=== PATIENT | female | born 1995 | race Caucasian/White ===

== ENCOUNTER 2017-04-18 21:15 | Observation (INO) | payer MEDICAID ==
[~2017-04-18 21:15] MED LIST: ADDERALL 20 MG20 M1 PO; AMOXICILLIN; AUGMENTIN; BACTRIM DS TABL1 TAB PO; BIRTH CONTROL; CHILDREN'S100 MG PO; COMPAZINE10 MG PO; DOXEPIN HCL10 MG PO; EFFEXOR75 MG PO; FOLIC ACID; FOLIC ACID0.8 M1 PO; GABAPENTIN; LEXAPRO20 MG; METHYLPHENIDATE; NAPROSYN250 MG; NORCO 5-325 TA1 EACH PO; PEN-VEE K500 MG PO; PRENATAL VITAM1 EAC8 PO; PREVACID; PREVPAC PATIEN1 EACH PO; PROMETHAZINE HC25 M3 PO; PROTONIX20 M2 PO; ROZEREM8 MG; TRAMADOL HCL50 MG PO; TRAZODONE50 MG PO; VITAMIN C; ZOFRAN; ZOFRAN ODT4 MG PO; ZOFRAN4 M2 PO; ZOFRAN8 M1 PO
[2017-04-18 21:56] LABS: BASO % 0.1 % (0-2); HCT-HEMATOCRIT 49.1 % (34.0-49.0); HGB-HEMOGLOBIN 16.9 gm/dl (12.0-15.5); IMMATURE GRANULOCYTES ABSOLUTE 0.04 tho/cmm (0-0.03); IMMATURE GRANULOCYTES PERCENT 0.2 % (0-0.3); LYMPH % 23.2 % (20-45); LYMPH ABSOLUTE COUNT 3.9 tho/cmm (0.8-4.5); MCH (MEAN CORPUSCULAR HGB) 29.4 pg (28.0-32.0); MCHC MEAN CORPUSCULAR HGB CONC 34.4 % (32.0-36.0); MCV (MEAN CELL VOLUME) 85.4 fl (82.0-96.0); MEAN PLATELET VOLUME 10.7 cmc (9.4-12.4); MONO % 6.9 % (0-12); MONOCYTE ABSOLUTE COUNT 1.2 tho/cmm (0.0-1.2); NEUTROPHIL ABSOLUTE COUNT 11.7 tho/cmm (1.6-8.0); NEUTROPHIL-AUTOMATED 11.7 tho/cmm (1.6-8.0); NEUTROPHILS % 69.6 % (40-80); PLATELET COUNT 413 tho/cmm (150-450); RED BLOOD COUNT 5.75 mil/cmm (4.00-5.20); RED CELL DISTRIBUTION WIDTH 13.6 % (12.4-16.4); WHITE BLOOD COUNT 16.8 tho/cmm (4.0-10.0)
[2017-04-18 22:07] LABS: ALBUMIN 4.3 g/dl (3.5-5.0); ALKALINE PHOSPHATASE 108 U/L (33-138); ALT/SGPT 28 U/L (12-78); BILIRUBIN,TOTAL 0.8 mg/dl (0-1.5); BLOOD UREA NITROGEN 11 mg/dl (6-24); CALCIUM 10.2 mg/dl (8.5-10.5); CARBON DIOXIDE-VENOUS 30 mmol/L (22-32); CHLORIDE 100 mmol/l (96-110); GLUCOSE 106 mg/dL (70-110); LIPASE 80 U/L (73-393); SODIUM 141 mmol/L (135-145); eGFR VALUE FOR BLACK >90 mL/Min
[2017-04-18 22:08] LABS: ANION GAP 14 mmol/L (0-20); AST/SGOT 25 U/L (10-40); POTASSIUM 3.1 mmol/L (3.7-5.1)
[2017-04-18 22:16] LABS: PREGNANCY-SERUM POSITIVE (NEGATIVE)
[2017-04-19 00:57] LABS: URINE APPEARANCE HAZY; URINE BILIRUBIN SMALL (NEG); URINE BLOOD NEGATIVE (NEG); URINE COLOR YELLOW; URINE GLUCOSE (UA) NEGATIVE (NEG); URINE KETONE MODERATE (NEG); URINE LEUKOCYTE ESTERASE POSITIVE (NEG); URINE NITRITE NEGATIVE (NEG); URINE PH 6.5 (5.0-8.0); URINE PROTEIN MODERATE (NEG); URINE SPECIFIC GRAVITY 1.015 (1.003-1.030)
[2017-04-19 01:03] LABS: URINE AMORPHOUS 1+; URINE BACTERIA 1+; URINE MUCUS 3+; URINE RBC 0 /[HPF] (0-5)
[2017-04-19 13:35] LABS: ANION GAP 12 mmol/L (0-20); BLOOD UREA NITROGEN 7 mg/dl (6-24); CALCIUM 8.8 mg/dl (8.5-10.5); CARBON DIOXIDE-VENOUS 28 mmol/L (22-32); CHLORIDE 105 mmol/l (96-110); CREATININE 0.67 mg/dl (0.50-1.10); GLUCOSE 88 mg/dL (70-110); POTASSIUM 3.7 mmol/L (3.7-5.1); SODIUM 141 mmol/L (135-145); eGFR VALUE FOR BLACK >90 mL/Min
[2017-05-25] MEDS ORDERED: ZOFRAN ODT8 MG PO (18:24)
[2017-05-25] MEDS ORDERED: PROVENTIL HFA6.7 G1 INH (18:29)
[2017-05-25] MEDS ORDERED: DICLEGIS DR 101 EACH PO (18:29)
[2017-05-25] MEDS ORDERED: ZOFRAN ODT4 MG PO (18:30)
[2017-05-27] MEDS ORDERED: PHENERGAN12.5 M2 PO (13:33)
[2017-05-27] MEDS ORDERED: ZITHROMAX250 M1 PO (13:42)
[2017-05-27] MEDS ORDERED: PROVENTIL HFA6.7 G1 INH (13:47)
[2017-06-25] MEDS ORDERED: ZOFRAN4 M2 PO (01:49)
[2017-06-27] MEDS ORDERED: PROMETHAZINE HC25 M3 PO (08:58)
== END 2017-04-19 18:35 ==
LOC: EDMED 21:15 → EMR2 04-19 00:24 → OBGE 04-19 00:40
PROVIDERS: Emergency Medicine; Obstetrics & Gynecology; ADMIT Obstetrics & Gynecology
DX: O21.9 Vomiting of pregnancy, unspecified (principal); Z3A.01 Less than 8 weeks gestation of pregnancy; F17.210 Nicotine dependence, cigarettes, uncomplicated
CPT/HCPCS: G0378; J1200; J2405; J7030